=== PATIENT | male | born 1995 | race Caucasian/White ===

== ENCOUNTER 2016-11-07 15:32 | Emergency (ER) | payer OTHER ==
[2016-11-07 15:37] VITALS: BP 141/75; PULSE 76; RESP 16; TEMP 98.2; O2SAT 97
--- NOTE | 2016-11-07 16:06 | EDPHY ---
H & P Time Seen by Provider: 11/07/16 15:45 HPI/ROS: CHIEF COMPLAINT: Low back pain HISTORY OF PRESENT ILLNESS: The patient is a 21-year-old male who presents emergency department with worsening low back pain. The patient states he has increased his cardiovascular workout. He had a long run on . The day after he noticed low back pain. This slowly worsened over the next couple of days. He also has moving and has been packing. His pain is bilateral lower back. It is not over the spine. He has no numbness or tingling. No incontinence of urine or stool. No fevers or chills. No recent trauma or fall. REVIEW OF SYSTEMS: My complete review of systems is negative except as mentioned in the HPI. Past Medical/Surgical History: Includes previous low back issues Past surgical history: Negative Social history: The patient does not smoke. Smoking Status: Former smoker Physical Exam: Vitals noted GENERAL: Well-appearing, in no acute distress, alert. HEENT: Eyes normal to inspection, normal pharynx, no signs of dehydration. NECK: No thyromegaly, no lymphadenopathy, supple. RESPIRATORY: Clear to auscultation bilaterally, no rales, rhonchi or wheezing. CVS: Regular rate and rhythm, no rubs, murmurs, or gallops. ABDOMEN: Soft, nontender, nondistended, no organomegaly. BACK: Normal to inspection, no CVA tenderness. Patient has no midline spinal tenderness. No deformity. Patient has mild bilateral paraspinal tenderness palpation over his lower lumbar spine. There is no SI tenderness to palpation. Patient has negative leg raise bilaterally. SKIN: Normal color, no rash, warm, dry. No pallor. EXTREMITIES: No pedal edema, no calf tenderness, no Homans sign or cords, no joint swelling. NEURO/PSYCH: Alert and oriented x3, normal mood and affect, normal motor sensory exam. Constitutional: Initial Vital Signs Temperature (C) 36.8 C 11/07/16 15:33 Heart Rate 76 11/07/16 15:33 Respiratory Rate 16 11/07/16 15:33 Blood Pressure 141/75 H 11/07/16 15:33 O2 Sat (%) 97 11/07/16 15:33 O2 Delivery Mode Room Air Allergies/Adverse Reactions: peanut Allergy (Verified 11/07/16 15:37) Home Medications: Medication Instructions Recorded Cephalexin [Keflex (*)] 500 mg PO QID #12 cap 01/17/16 oxyCODONE/APAP 5/325 [Percocet 1 - 2 tab PO Q4PRN PRN #11 tab 01/17/16 5/325 (*)] Cyclobenzaprine [Flexeril] 10 mg PO TID #15 tab 11/07/16 Hydrocodone/APAP 5/325 [[facility] 1 - 2 tab PO Q4 #13 tab 11/07/16 5/325 (RX)] predniSONE 20 mg PO DAILY 4 Days 11/07/16 Medical Decision Making ED Course/Re-evaluation: In the emergency department I discussed possible etiologies with the patient. I answered all his questions. At this time I do not feel he has a neuro surgical emergency. He will be treated conservatively. Patient will be given a prescription of prednisone, Flexeril and Vicodin. He will follow up his primary care physician. He is given warnings prior to leaving. He will return with worsening symptoms. Differential Diagnosis: My differential includes but is not limited to strain, sprain, disc herniation, cauda equina syndrome, fracture Departure - Departure Disposition: Home, Routine, Self-Care Clinical Impression: Low back pain Qualifiers: Chronicity: acute Back pain laterality: bilateral Sciatica presence: without sciatica Qualified Code(s): M54.5 - Low back pain Condition: Good Instructions: Acute Low Back Pain (ED) Additional Instructions: Return with increasing pain, weakness, numbness, incontinence of urine or stool , fever or any other concerns. Referrals: Isela Melton PA [Primary Care Provider] - 3-4 days, if not improved Prescriptions: Cyclobenzaprine [Flexeril] 10 mg PO TID #15 tab Hydrocodone/APAP 5/325 [[facility] 5/325 (RX)] 1 - 2 tab PO Q4 #13 tab predniSONE 20 mg PO DAILY 4 Days
[2016-11-07] MEDS ORDERED: predniSONE 20 MG TAB PO ONE (16:08)
== END 2016-11-07 16:20 | disposition home or self-care (01) ==
DX: M54.5 Low back pain (principal); Z87.891 Personal history of nicotine dependence